=== PATIENT | female | born 1965 | race Two or more races ===

== ENCOUNTER 2017-07-09 11:04 | Outpatient (CLI) | payer OTHER ==
[~2017-07-09 11:04] MED LIST: GABAPENTIN100 MG PO; LIPITOR20 MG; VASOTEC5 MG
== END 2017-07-09 11:13 | disposition home or self-care (01) ==
LOC: MAMO-SONO 11:04
DX: N60.11 Diffuse cystic mastopathy of right breast (principal); N60.12 Diffuse cystic mastopathy of left breast

== ENCOUNTER → 2018-08-14 | Outpatient (CLI) | payer OTHER | END | disposition home or self-care (01) | LOC: MAMO-SONO 08:56 | DX: N60.11 Diffuse cystic mastopathy of right breast (principal); N60.12 Diffuse cystic mastopathy of left breast; Z12.31 Encounter for screening mammogram for malignant neoplasm of breast ==

== ENCOUNTER 2018-11-20 10:00 | Outpatient (CLI) | payer OTHER | END 2018-11-20 12:56 | disposition home or self-care (01) | LOC: SONOGRAMA 10:00 → MAMO-SONO 10:15 → SONOGRAMA 12:56 | DX: E78.49 Other hyperlipidemia (principal); Z13.29 Encounter for screening for other suspected endocrine disorder ==

== ENCOUNTER 2018-12-07 08:23 | Outpatient (CLI) | payer OTHER | END 2018-12-07 09:32 | disposition home or self-care (01) | LOC: SONOGRAMA 08:23 | DX: E04.1 Nontoxic single thyroid nodule (principal) ==

== ENCOUNTER 2020-01-28 10:35 | Outpatient (CLI) | payer OTHER | END 2020-01-28 10:56 | disposition home or self-care (01) | LOC: MAMO-SONO 10:35 | PROVIDERS: ATTEND Specialist | DX: E04.1 Nontoxic single thyroid nodule (principal); I10 Essential (primary) hypertension; Z13.29 Encounter for screening for other suspected endocrine disorder; Z12.31 Encounter for screening mammogram for malignant neoplasm of breast; N60.11 Diffuse cystic mastopathy of right breast; N60.12 Diffuse cystic mastopathy of left breast ==

== ENCOUNTER 2020-03-27 09:40 | Outpatient (CLI) | payer OTHER | END 2020-03-27 09:44 | disposition home or self-care (01) | LOC: SONOGRAMA 09:40 | PROVIDERS: ATTEND Pathology Anatomic Pathology & Clinical Pathology | DX: E04.2 Nontoxic multinodular goiter (principal) ==

== ENCOUNTER → 2020-12-12 | Emergency (ER) | payer OTHER ==
[~2020-12-12] VITALS: Ht 157.5 cm; Wt 62.1 kg
[~2020-12-12] MED LIST changes: +TRICOR48 MG PO; +ZOLOFT100 MG PO
== END | disposition home or self-care (01) ==
LOC: ER 18:28
DX: M94.0 Chondrocostal junction syndrome [Tietze] (principal); Z03.818 Encounter for observation for suspected exposure to other biological agents ruled out

== ENCOUNTER 2021-06-22 08:54 | Outpatient (CLI) | payer OTHER ==
[~2021-06-22 08:54] MED LIST changes: +NABUMETONE750 MG PO; +ZANAFLEX2 M1 PO
[2021-07-09] MEDS ORDERED: NABUMETONE750 MG PO (09:59)
[2021-07-09] MEDS ORDERED: ZANAFLEX2 M1 PO (09:59)
== END 2021-06-22 09:01 | disposition home or self-care (01) ==
LOC: NUCLEAR 08:54
PROVIDERS: ATTEND Physical Medicine & Rehabilitation
DX: G54.0 Brachial plexus disorders (principal)

== ENCOUNTER 2021-06-27 09:48 | Outpatient (CLI) | payer OTHER ==
[2021-07-09] MEDS ORDERED: NABUMETONE750 MG PO (09:59)
[2021-07-09] MEDS ORDERED: ZANAFLEX2 M1 PO (09:59)
== END 2021-06-27 09:58 | disposition home or self-care (01) ==
LOC: NUCLEAR 09:48
PROVIDERS: ATTEND Physical Medicine & Rehabilitation
DX: I87.2 Venous insufficiency (chronic) (peripheral) (principal)

== ENCOUNTER 2021-07-16 08:57 | Outpatient (CLI) | payer OTHER | END 2021-07-16 09:14 | disposition home or self-care (01) | LOC: MAMO-SONO 08:57 | PROVIDERS: ATTEND Specialist | DX: Z12.31 Encounter for screening mammogram for malignant neoplasm of breast (principal); N63.0 Unspecified lump in unspecified breast ==

== ENCOUNTER 2022-04-23 13:04 | Emergency (ER) | payer OTHER ==
[~2022-04-23] VITALS: Ht 157.5 cm; Wt 68.9 kg
[2022-04-23] MEDS ORDERED: CYMBALTA30 MG (13:39)
[2022-04-23] MEDS ORDERED: BACTRIM DS TAB1 EACH PO (19:53)
[2022-04-23] MEDS ORDERED: PYRIDIUM DS200 MG PO (19:54)
== END 2022-04-23 18:11 | disposition home or self-care (01) ==
LOC: ER 13:04
DX: R30.0 Dysuria (principal); N30.91 Cystitis, unspecified with hematuria

== ENCOUNTER 2022-08-01 07:39 | Outpatient (CLI) | payer OTHER ==
[~2022-08-01 07:39] MED LIST changes: +BACTRIM DS TAB1 EACH PO; +CYMBALTA30 MG; +PYRIDIUM DS200 MG PO
== END 2022-08-01 07:48 | disposition home or self-care (01) ==
LOC: SONOGRAMA 07:39
PROVIDERS: ATTEND Specialist
DX: R10.2 Pelvic and perineal pain (principal); R94.5 Abnormal results of liver function studies

== ENCOUNTER 2022-09-12 09:48 | Outpatient (CLI) | payer OTHER | END 2022-09-12 10:14 | disposition home or self-care (01) | LOC: MAMO-SONO 09:48 | PROVIDERS: ATTEND Specialist | DX: Z12.31 Encounter for screening mammogram for malignant neoplasm of breast (principal); N63.0 Unspecified lump in unspecified breast ==

== ENCOUNTER 2022-11-21 08:39 | Outpatient (CLI) | payer OTHER | END 2022-11-21 08:43 | disposition home or self-care (01) | LOC: NUCLEAR 08:39 | PROVIDERS: ATTEND Internal Medicine Gastroenterology | DX: K81.1 Chronic cholecystitis (principal) ==

== ENCOUNTER 2023-01-09 11:34 | Outpatient (CLI) | payer OTHER | END 2023-01-09 11:40 | disposition home or self-care (01) | LOC: RAD 11:34 | DX: N17.0 Acute kidney failure with tubular necrosis (principal) ==

== ENCOUNTER 2023-01-22 13:54 | Outpatient (CLI) | payer OTHER | END 2023-01-22 13:59 | disposition home or self-care (01) | LOC: NUCLEAR 13:54 | PROVIDERS: ATTEND Internal Medicine Rheumatology | DX: M81.0 Age-related osteoporosis without current pathological fracture (principal) ==

== ENCOUNTER 2023-11-07 13:43 | Outpatient (CLI) | payer OTHER | END 2023-11-07 14:03 | disposition home or self-care (01) | LOC: MAMO-SONO 13:43 | PROVIDERS: ATTEND Specialist | DX: N63.0 Unspecified lump in unspecified breast (principal); Z12.31 Encounter for screening mammogram for malignant neoplasm of breast ==

== ENCOUNTER 2024-09-08 07:55 | Outpatient (CLI) | payer OTHER | END 2024-09-08 08:12 | disposition home or self-care (01) | LOC: MAMO-SONO 07:55 | PROVIDERS: ATTEND Specialist | DX: Z12.31 Encounter for screening mammogram for malignant neoplasm of breast (principal); N63.0 Unspecified lump in unspecified breast ==

== ENCOUNTER 2024-10-07 09:18 | Outpatient (CLI) | payer OTHER | END 2024-10-07 09:19 | disposition home or self-care (01) | LOC: NUCLEAR 09:18 | PROVIDERS: ATTEND Internal Medicine Rheumatology | DX: M81.0 Age-related osteoporosis without current pathological fracture (principal) ==

== ENCOUNTER 2024-10-07 10:23 | Outpatient (CLI) | payer OTHER | END 2024-10-07 10:40 | disposition home or self-care (01) | LOC: RAD 10:23 | PROVIDERS: ATTEND Internal Medicine Rheumatology | DX: M17.0 Bilateral primary osteoarthritis of knee (principal) ==